=== PATIENT | female | born 1970 ===

== ENCOUNTER 2023-06-14 09:34 | Inpatient (IN) | payer OTHER ==
[~2023-06-14] VITALS: Ht 177.8 cm; Wt 82.6 kg
[2023-06-15] MEDS ORDERED: LOVAZA1 GM PO (10:37)
[2023-06-15] MEDS ORDERED: TRIJARDY XR 121 EACH PO (10:37)
[2023-06-15] MEDS ORDERED: SYNTHROID112 MCG PO (10:38)
[2023-06-15] MEDS ORDERED: LIOTHYRONINE PO (10:38)
[2023-06-15] MEDS ORDERED: CANDESARTAN CILE8 MG PO (10:39)
[2023-06-15] MEDS ORDERED: EFFEXOR XR37.5 MG PO (10:39)
[2023-06-15] MEDS ORDERED: CRESTOR10 MG PO (10:39)
[2023-06-15] MEDS ORDERED: OSTERA TABLET1 EACH PO (10:39)
[2023-06-21] MEDS ORDERED: LO LOESTRIN FE1 EACH (11:30)
[2023-06-21] MEDS ORDERED: LIOTHYRONINE S25 MCG (11:30)
[2023-06-21] MEDS ORDERED: FAMOTIDINE40 MG (11:30)
== END 2023-06-25 16:41 | disposition home or self-care (01) | DRG 742 ==
LOC: SURG 06-21 07:00 → O/R 06-21 10:00 → OB/GYN 06-21 15:50
PROVIDERS: Internal Medicine; ADMIT Obstetrics & Gynecology; ATTEND Obstetrics & Gynecology
PROC: 0UT70ZZ Resection of Bilateral Fallopian Tubes, Open Approach (ICD-10-PCS; 2023-06-21)
PROC: 0UT90ZZ Resection of Uterus, Open Approach (ICD-10-PCS; principal; 2023-06-21 07:00)
PROC: 30233N1 Transfusion of Nonautologous Red Blood Cells into Peripheral Vein, Percutaneous Approach (ICD-10-PCS; 2023-06-22)
PROC: BW4GZZZ Ultrasonography of Pelvic Region (ICD-10-PCS; 2023-06-22)
DX: D25.1 Intramural leiomyoma of uterus (principal); D62 Acute posthemorrhagic anemia; N72 Inflammatory disease of cervix uteri; N73.6 Female pelvic peritoneal adhesions (postinfective); Z20.822 Contact with and (suspected) exposure to COVID-19